=== PATIENT | female | born 1970 | race Caucasian/White ===

== ENCOUNTER 2020-02-06 13:12 | Outpatient (CLI) | payer OTHER, SELFPAY ==
--- NOTE | ~2020-02-06 | MM_ITS ---
EXAMINATION: MM screening [facility] BI w randall HISTORY: Screening mammogram TECHNIQUE: Craniocaudal and mediolateral oblique 3-D tomosynthesis images were obtained and synthetic 2-D images were generated. CAD analysis was submitted and interpreted. COMPARISON: 09/12/2018, 07/01/2017, 09/17/2015 bilateral digital screening mammogram examinations BREAST PARENCHYMAL COMPOSITION: The breasts are heterogeneously dense, which may obscure small masses .. FINDINGS: There is no evidence of suspicious mass, calcification, or architectural distortion to sugg est malignancy in either breast. There has been no suspicious interval change. IMPRESSION: 1. No mammographic evidence of malignancy. 2. Recommend routine screening mammography in one year. BIRADS Category 1: Negative Reviewed, dictated and finalized at location A.
== END 2020-02-06 13:13 | disposition home or self-care (01) ==
LOC: ANHIMG 13:14
PROVIDERS: PCP Obstetrics & Gynecology; Visit Provider Obstetrics & Gynecology
DX: Z12.31 Encounter for screening mammogram for malignant neoplasm of breast (principal)
CPT/HCPCS: 77063; 77067

== ENCOUNTER 2021-05-15 15:24 | Outpatient (CLI) | payer OTHER, SELFPAY ==
--- NOTE | ~2021-05-15 | MM_ITS ---
EXAMINATION: MM screening [facility] BI w randall HISTORY: Screening TECHNIQUE: Craniocaudal and mediolateral oblique 3-D tomosynthesis images were obtained and synthetic 2-D images were generated. CAD analysis was submitted and interpreted. COMPARISON: Comparison to multiple prior studies sequentially, with oldest reviewed study dated 09/04. BREAST PARENCHYMAL COMPOSITION: The breasts are extremely dense, which lowers the sensitivity of mamm ography. FINDINGS: There is no evidence of suspicious mass, calcification, or architectural distortion to sugg est malignancy in either breast. There has been no suspicious interval change. IMPRESSION: 1. No mammographic evidence of malignancy. 2. Recommend routine screening mammography in one year. BI-RADS Category 1: Negative Reviewed, dictated and finalized at location A.
== END 2021-05-15 15:25 | disposition home or self-care (01) ==
LOC: ANHIMG 15:25
PROVIDERS: PCP Obstetrics & Gynecology; Visit Provider Obstetrics & Gynecology
DX: Z12.31 Encounter for screening mammogram for malignant neoplasm of breast (principal)
CPT/HCPCS: 77063; 77067

== ENCOUNTER 2022-10-26 08:42 | Outpatient (CLI) | payer OTHER, SELFPAY ==
--- NOTE | ~2022-10-26 | MM_ITS ---
EXAMINATION: MM screening [facility] BI w randall HISTORY: Screening mammogram TECHNIQUE: Craniocaudal and mediolateral oblique 3-D tomosynthesis images were obtained and synthetic 2-D images were generated. CAD analysis was submitted and interpreted. COMPARISON: 05/15/2021, 02/06/2020, 09/12/2018 BREAST PARENCHYMAL COMPOSITION: The breasts are heterogeneously dense, which may obscure small masses . FINDINGS: No suspicious mass, calcification, or architectural distortion are identified in either anushka ast to suggest malignancy. There has been no suspicious interval change. IMPRESSION: 1. No mammographic evidence of malignancy. 2. Recommend routine screening mammography in one year. BI-RADS Category 1: Negative Reviewed, dictated and finalized at location A.
== END 2022-10-26 08:43 | disposition home or self-care (01) ==
PROVIDERS: PCP Obstetrics & Gynecology; Visit Provider Student in an Organized Health Care Education/Training Program
DX: Z12.31 Encounter for screening mammogram for malignant neoplasm of breast (principal)
CPT/HCPCS: 77063; 77067

== ENCOUNTER 2023-10-21 15:26 | Outpatient (CLI) | payer OTHER, SELFPAY ==
--- NOTE | ~2023-10-21 | MM_ITS ---
EXAMINATION: MM screening [facility] BI w randall HISTORY: Screening TECHNIQUE: Craniocaudal and mediolateral oblique 3-D tomosynthesis images were obtained and synthetic 2-D images were generated. CAD analysis was submitted and interpreted. COMPARISON: Comparison to multiple prior studies sequentially, with oldest reviewed study dated 10/26. BREAST PARENCHYMAL COMPOSITION: Dense: The breasts are heterogeneously dense, which may obscure small masses FINDINGS: There are focal asymmetries medially in the right breast on CC view. There is a new mass in the lower central left breast. There are no suspicious calcifications. IMPRESSION: 1. Right breast asymmetries. New left breast mass. 2. Additional mammographic views and possible breast ultrasound are recommended. BI-RADS Category 0: Incomplete: Needs additional imaging evaluation. Reviewed, dictated and finalized at location A. IMPRESSION: 1. Right breast asymmetries. New left breast mass. 2. Additional mammographic views and possible breast ultrasound are recommended . BI-RADS Category 0: Incomplete: Needs additional imaging evaluation.
== END 2023-10-21 15:27 | disposition home or self-care (01) ==
LOC: ANHIMG 16:03
PROVIDERS: PCP Obstetrics & Gynecology; Visit Provider Student in an Organized Health Care Education/Training Program
DX: Z12.31 Encounter for screening mammogram for malignant neoplasm of breast (principal); N64.89 Other specified disorders of breast
CPT/HCPCS: 77063; 77067

== ENCOUNTER 2023-11-02 13:10 | Outpatient (CLI) | payer OTHER, SELFPAY ==
--- NOTE | ~2023-11-02 | MMUS_ITS ---
EXAMINATION: MM diagnostic [facility] BI w randall, US breast BI complete HISTORY: Right breast mammographic asymmetries and new left breast mass reported on October 21, 2023 sc reening mammogram examinations TECHNIQUE: Additional 3-D tomosynthesis images of both breasts were performed and synthetic 2-D image s were generated. CAD analysis was submitted and interpreted. High resolution complete bilateral carlos enrique st ultrasound examination including all 4 quadrants and subareolar area of each breast was performed. COMPARISON: October 21, 2023 bilateral screening mammogram October 26, 2022, 05/15/2021 bilateral screening mammogram examinations FINDINGS: MAMMOGRAPHIC FINDINGS: Approximately 10 mm partially circumscribed mass is suggested posteriorly in the lower mid left breas t (coned compression MLO Tomosynthesis image 23/69; cone compression craniocaudal Tomosynthesis image 16/72). No suspicious mass, architectural distortion, malignant calcification, skin thickening or retraction of either breast is noted otherwise. ULTRASOUND: No suspicious solid lesion or shadowing of either breast is evident. Right breast: 12:00 near nipple: Approximately 4 mm cyst 12:00 near nipple: 4 x 5 x 5.6 mm circumscribed hypoechoic lesion without internal vascularity or pos terior shadowing, likely benign Left breast: 6:00 4 cm from nipple: 9 x 12 mm simple cyst with through transmission and posterior enhancement IMPRESSION: 1. Benign findings 2. Routine annual mammographic screening is recommended BI-RADS Category 2: Benign finding(s). Reviewed, dictated and finalized at location A. IMPRESSION: 1. Benign findings 2. Routine annual mammographic screening is recommended BI-RADS Category 2: Benign finding(s).
== END 2023-11-02 13:11 | disposition home or self-care (01) ==
LOC: ANHIMG 13:17
PROVIDERS: PCP Obstetrics & Gynecology; Visit Provider Student in an Organized Health Care Education/Training Program
DX: Z12.31 Encounter for screening mammogram for malignant neoplasm of breast (principal); N64.89 Other specified disorders of breast; N63.20 Unspecified lump in the left breast, unspecified quadrant
CPT/HCPCS: 76641; 77062; 77066; G0279

== ENCOUNTER 2025-04-23 15:06 | Outpatient (CLI) | payer OTHER, SELFPAY ==
--- NOTE | ~2025-04-23 | MM_ITS ---
EXAMINATION: MM screening [facility] BI w randall HISTORY: Screening TECHNIQUE: Craniocaudal and mediolateral oblique 3-D tomosynthesis images were obtained and synthetic 2-D images were generated. CAD analysis was submitted and interpreted. COMPARISON: 10/26/2022 BREAST PARENCHYMAL COMPOSITION: The breasts are extremely dense, which lowers the sensitivity of mammography. FINDINGS: No suspicious calcifications. Asymmetry in the upper right breast, anterior depth with questionable associated architectural distortion. Asymmetry in the medial right breast, middle depth, seen in the right cc projection. Asymmetry in the right retroareolar region seen in the right cc projection. Focal asymmetry in the central left breast, middle to posterior depth. IMPRESSION: 1. Asymmetry in the upper right breast, anterior depth with questionable associated architectural distortion. Asymmetry in the medial right breast, middle depth, seen in the right cc projection. Asymmetry in the right retroareolar region seen in the right CC projection. The study is incomplete. A diagnostic mammogram and a diagnostic ultrasound are recommended. 2. Focal asymmetry in the central left breast, middle to posterior depth. The study is incomplete. A diagnostic mammogram and a diagnostic ultrasound are recommended. BI-RADS 0: Incomplete-Need additional imaging evaluation. Reviewed, dictated and finalized at location Q. IMPRESSION: 1. Asymmetry in the upper right breast, anterior depth with questionable associ ated architectural distortion. Asymmetry in the medial right breast, middle dep th, seen in the right cc projection. Asymmetry in the right retroareolar region seen in the right CC projection. The study is incomplete. A diagnostic mammogr am and a diagnostic ultrasound are recommended. 2. Focal asymmetry in the central left breast, middle to posterior depth. The s tudy is incomplete. A diagnostic mammogram and a diagnostic ultrasound are romana mmended. BI-RADS 0: Incomplete-Need additional imaging evaluation.
--- OUTSIDE RECORDS SUMMARY | 2025-04-23 09:00 | XMS_ITS | Encounter Summary ---
Author Organization [facility] Address [address] [place] [address] Care Team Providers Care Shipping Support Clerk Name Role Phone Xavier Bernardo MD Primary Care Provider [phone] Oli Beyer MD Unavailable Reason for Visit * Reason Comments Cpap Follow-up Encounter Details Date Type Department Care Team (Late st Contact Info) Description 04/23/2025 9:00 AM CDT Office Visit [facility] [address] [place] [address] Shauna Wood, APNP-IN HOME SALES REPRESENTATIVE [address] [place] [address] JUSTIN (obstructive sleep apnea) (Primary Dx); Nocturia; Insufficient treatment with nasal CPAP; Obesity (BMI 30-39.9); CPAP use counseling Social History Tobacco Use Types Packs/Day Years Used Date Smoking Tobacco: Never Smokeless Tobacco: Never Alcohol Use Standard Drinks/Week Comments Yes 2 (1 standard drink = 0.6 oz pur e alcohol) roughly 4 glasses wine/mo PHQ-2 Answer Date Recorded Patient Health Questionnaire-2 Score 0 10/24/2024 Comments No Sex and Gender Information Value Date Recorded Sex Assigned at Not on file 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 Gender Identity Not on file Sexual Orientation Not on file 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 Answer Date of Assessment Author No 01/13/2024 12:43 PM CDT Anupama Sanches RN * Is person blind or have serious difficulty seeing? Answer Date of Assessment Author No 01/13/2024 12:43 PM CDT Anupama Sanches RN * Does person have serious difficulty walking/climbing stairs? Answer Date of Assessment Author No 01/13/2024 12:43 PM CDT Anupama Sanches RN * Does person have difficulty dressing/bathing? Answer Date of Assessment Author No 01/13/2024 12:43 PM CDT Anupama Sanches RN documented as of this encounter Mental Status * Does person have difficulty concentrating/remembering/making decisions? Answer Entry Date Author No 01/13/2024 12:43 PM CDT Anupama Sanches RN documented in this encounter Plan of Treatment Upcoming Encounters Date Type Department Care Team (Late st Contact Info) Description 10/22/2025 9:00 AM CDT Office Visit [facility] [address] [place] [address] Shauna Wood APNP-IN HOME SALES REPRESENTATIVE [address] [facility] [address] [place] [address] documented as of this encounter Visit Diagnoses Diagnosis JUSTIN (obstructive sleep apnea)- Primary Obstructive sleep apnea (adult) (pediatric) Nocturia Insufficient treatment with nasal CPAP Other respiratory complications Obesity (BMI 30-39.9) Obesity, unspecified CPAP use counseling documented in this encounter Care Teams Shipping Support Clerk Relationship Specialty Start Date End Date Xavier Bernardo MD [address] [facility] [place] [address] PCP - General Internal Medicine 08/03/23 Oli Beyer MD [address] [place] [id number] Resident Internal Medicine 08/03/23 documented as of this encounter
--- OUTSIDE RECORDS SUMMARY | 2025-04-23 16:54 | XMS_ITS | Clinical Summary ---
Author Organization [facility] Address [address] [place] [address] Care Team Providers Care Chute Loader Name Role Phone Xavier Bernardo MD Primary Care Provider [phone] Oli Beyer MD Unavailable Source Comments [facility],non-owned Affiliates and Associated Physician Practices is amultiple site organization consisting of ambulatory clinics and hospital sitesin [place], [place], [place] and [place]. This disclosure is being madepursuant to the Care Everywhere program and may not contain all informatio navailable regarding this patient. Last updated 18.[facility] Allergies Active Allergy Reactions Criticality Noted Date Comments Compazine Other High 03/05/2008 paralyzed Sulfa Drugs Other,Rash Medium 04/03/2013 Blood plateles go low Medications * Be aware that medications may not be up to date on this document. Alwaysverify current medications with the patient. cetirizine (ZYRTEC ALLERGY) 10 MG gel capsule Take 1 (one) capsule by mouth once daily Active DiphenhydrAMINE HCl (BENADRYL ALLERGY PO) Take 25 mg by mouth as needed Active multivitamin daily tablet Take 1 (one) tablet by mouth daily with food Active Cholecalciferol (VITAMIN D PO) Take 1,000 mcg by mouth once daily Active riboflavin 400 MG capsule Take 1 capsule by mouth once daily 60 capsule 5 9 Active fluticasone propionate (FLONASE) 50 MCG/ACT nasal spray [place] 2 (two) sprays into each nostril once daily Active montelukast (Singulair) 10 MG tablet Take 1 tablet by mouth once daily 90 tablet 3 5 Active propranolol ER 24hr (Inderal LA) 80 MG capsuleIndicatio ns:Migraine with aura and without status migrainosus, not intractable Take 1 (one) capsule by mouth once daily 90 capsule 3 5 Active rizatriptan (Maxalt) 5 MG tabletIndication s:Migraine with aura and without status migrainosus, not intractable TAKE 1 TABLET BY MOUTH NEEDED for migraine. May repeat x 1 dose in 2 hours if needed. Max dose 2 tabs in 24 hours 9 tablet 3 5 Active Azelastine HCl 137 MCG/SPRAY SOLN INHALE 2 SPRAYS IN INTO EACH NOSTRIL TWICE A DAY 4 04/23/20 25 Discontinu ed(Tx Complete) Active Problems Problem Noted Date Diagnosed Date TMJ (temporomandibular joint disorder) 4 Overweight (BMI 25.0-29.9) 03/30/2021 Healthcare maintenance 06/23/2018 Overview (02/27/2020): - Breast cancer screenin01/2020 - Cervical cancer screening: follows up with MECHANICAL METER TESTER - CRC screenin05/2008 d/t low iron levels (repeat at age 50) - Osteoporosis screening: due at 67 Allergic rhinitis 12/13/2013 JUSTIN (obstructive sleep apnea) 04/24/2013 Essential hypertension 03/05/2013 Chronic pansinusitis 03/05/2008 Migraine without aura and wi thout status migrainosus, not intractable 03/05/2008 Encounters Date Type Department Care Team Description 04/23/2025 9:00 AM CDT Office Visit [facility] - [facility] Services [address] [phone] Shauna Wood, MILO-COMPUTER TEACHER JUSTIN (obstructive sleep apnea) (Primary Dx); Nocturia; Insufficient treatment with nasal CPAP; Obesity (BMI 30-39.9); CPAP use counseling 04/23/2025 Travel 01/30/2025 Travel from Last 3 Months Immunizations Immunization Administration Dates Next Due INFLUENZA VACCINE, TRIV. (AF LURIA, FLUZONE TRIVALENT; 6MO+) (IIV3) 05/10/2016,04/17/2013 Covid [employer] primary monoval ent 12+ yr 0.3mL Purple cap 05/30/2021,09/06/2020,08/11/2020 DT (AGE 0-7) 07/11/1995 FLU VACCINE TRI IIV3 SPLIT I M (FLUVIRIN) 04/12/2013 HEP B VACCINE, ADULT 3 DOSE 10/24/2024,0 11/07/2023,10/03/2023,2023 INFLUENZA VACCINE 04/10/2019,04/10/2018 INFLUENZA VACCINE, CELL CULT URE, QUADR. (FLUCELVAX QUADRIVALENT; 6MO+), 0.5 ML (CCIIV4) 04/26/2019 INFLUENZA VACCINE, QUADR. (F LUZONE; FLULAVAL; FLUARIX; AFLURIA QUADRIVALENT; 6MO+), 0.5 ML (IIV4) 04/14/2023,04/29/2022,04/23/2021,2019,04/06/2018,04/14/2017 INFLUENZA VACCINE, TRIV. (FL UZONE; FLULAVAL; FLUARIX; AFLURIA TRIVALENT; 6MO+), 0.5 ML (IIV3) 05/10/2016 TDAP (7yrs+) 10/24/2024,08/19/2014 Zoster Hzv Vacc Recombinant Inj Im 10/03/2023, Family History Medical History Relation Name Comments Alzheimer's Disease Father 84 Anxiety Disorder Father 84 DVT - Deep Vein Thrombosis Maternal Grandmother DVT - Deep Vein Thrombosis Mother Hypertension Mother Pulmonary Embolism Mother hemophili a previously marked, pt reports no h/o bleeding just clotting Allergic Rhinitis Sister Anxiety Disorder Sister DVT - Deep Vein Thrombosis Sister Thyroid Disease Sister Relation Name Status Comments Father 84 Maternal Grandfather Maternal Grandmother Mother Alive Paternal Grandfather Paternal Grandmother Sister Alive Social History Tobacco Use Types Packs/Day Years Used Date Smoking Tobacco: Never Smokeless Tobacco: Never Tobacco Cessation:Counseling Given: Not Answered Alcohol Use Standard Drinks/Week Comments Yes 2 (1 standard drink = 0.6 oz pur e alcohol) roughly 4 glasses wine/mo PHQ-2 Answer Date Recorded Patient Health Questionnaire-2 Score 0 10/24/2024 Comments No Sex and Gender Information Value Date Recorded Sex Assigned at Not on file Legal Sex Female 6:28 AM TEXT TRANSCRIBER Gender Identity Not on file Sexual Orientation Not on file 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 on file Not on file Not on file Last Filed Vital Signs Vital Sign Reading Time Taken Comments Blood Pressure 134/92 04/23/2025 9:07 AM CDT Pulse 78 04/23/2025 9:07 AM CDT Temperature 36.8 C (98.3 F) 01/13/2024 12:35 PM CDT Respiratory Rate 12 01/13/2024 1:05 PM CDT Oxygen Saturation 97% 10/24/2024 3:07 PM CDT Inhaled Oxygen Concentration - - Weight 90.7 kg (200 lb) 04/23/2025 9:07 AM CDT Height 167.6 cm (5' 6) 04/23/2025 9:07 AM CDT Body Mass Index 32.28 04/23/2025 9:07 AM CDT Plan of Treatment Upcoming Encounters Date Type Department Care Team (Late st Contact Info) Description 10/22/2025 9:00 AM CDT Office Visit [facility] - [facility] [address] [facility] [address] [place] [address] Shauna Wood APNP-COMPUTER TEACHER [address] [facility] [address] [place] [address] Health Maintenance Due Date Last Done Comments COLOGUARD (AGES 45-75) - COLON CA SCREENING 1972 CT COLONOGRAPHY - COLON CA SCREENING 1972 FIT - COLON CA SCREENING 1972 FLEX SIG - COLON CA SCREENING 1972 PNEUMOCOCCAL VACCINE 50+ (1 of 2 - PCV) 09/21/1991 COVID-19 VACCINE ( season) 2025 06/10/2022, 05/30/2021, 09/27/2020, Additional history exists INFLUENZA VACCINE (#1) 2025 3, 04/29/2022, 04/23/2021, Additional history exists MAMMOGRAM 10/24/2025 10/25/2023 (Done Outside Per Report), 10/11/2022 (Done Outside Per Report) LIPID TESTING 06/17/2026 06/17/2021, /01/2019, 08/09/2014, Additional history exists COLON MONITORING 01/12/2027 01/13/2024, 01/13/2024 Colorectal Cancer Screening 01/12/2027 PAP with HPV 10/21/2027 10/20/2022 (Done Outside Per Patient), 07/11/2017 (Done Outside Per Patient) SCREENING FOR DIABETES 10/25/2027 5, 06/17/2021, 06/17/2021, Additional history exists COLONOSCOPY - COLON CA SCREENING 01/12/2034 01/13/2024, 01/13/2024 DTAP/TDAP/TD VACCINES (4 - Td or Tdap) 10/24/2034 10/24/2024, 08/19/2014, 07/11/1995 HEPATITIS C SCREENING Completed 06/17/2021 HIV SCREENING Completed 06/17/2021 ZOSTER VACCINE Completed 10/03/2023, 08/03/2023 DEPRESSION SCREENING Completed 10/24/2024, 08/03/2023, 12/17/2021 HEPATITIS B VACCINE Completed 10/24/2024, 11/07/2023, 10/03/2023, Additional history exists HIB VACCINE Aged Out No longer eligi ble based on patient's age to complete this topic HPV VACCINE Aged Out No longer eligi ble based on patient's age to complete this topic MENINGOCOCCAL (Group B) VACCINE SHARED DECISION-MAKING Aged Out No longer eligible based on patient's age to complete this topic MENINGOCOCCAL GROUPS A/C/Y/W VACCINE Aged Out No longer eligible based on patient's age to complete this topic Medical Devices Implanted Type Area Senior It Auditor Device Identifier Shelf Expiration Date Model / Serial / Lot Impl Nsl Propel Contr Strl Lf Implanted:Qty: 1 on 06/06/2018 by Xavier Barger MD at [facility] Right: Sinus Intersect 12/28/2019 [id number] / / [id number] Impl Nsl Propel Contr Strl Lf Implanted:Qty: 1 on 06/06/2018 by Xavier Barger MD at [facility] Left: Sinus Intersect 12/28/2019 [id number] / / [id number] Procedures Procedure Name Priority Date/Time Associated Diagnosis Comments HEMOGLOBIN A1C - POINT OF CARE (AMB) [facility] Routine 10/24/2024 4:14 PM CDT Screening due ENDOSCOPY, COLON, SCREENING Routine 01/13/2024 11:41 AM CDT LIPID PROFILE Routine 06/17/2021 4:40 PM TEXT TRANSCRIBER Preventative health care Encounter to establish care with new doctor HEPATITIS C AB SCREEN RFLX NAAT QUANT STAT 06/17/2021 4:40 PM TEXT TRANSCRIBER Preventative health care Encounter to establish care with new doctor HIV-1 HIV-2 ANTIBODY + HIV P24 AG PANEL Routine 06/17/2021 4:40 PM TEXT TRANSCRIBER Preventative health care Encounter to establish care with new doctor from Last 3 Months or Most Recently Relevant to Health Maintenance Results * HEMOGLOBIN A1C - POINT OF CARE (AMB) [facility] (10/24/2024 4:14 PM CDT) Hemoglobin A1c POCT 5.4 % [address] BLOOD SPECIMEN / Unknown 10/24/2024 4:14 PM CDT us Yvette Story MD LAB - POINT OF CARE ORDERABLES Final Result [address] [place] [address], [facility] [phone] * ENDOSCOPY, COLON, SCREENING (01/13/2024 11:41 AM CDT) Report Endoscopy POC Endoscopy Department Report _ Patient Name: Julia Eagle Procedure Date: 01/13/2024 11:41 AM Date of : 1970 Classification: Outpatient Gender: Female Ethnicity: Not or Race: White _ Providers: Jose Juan Monahan MD, Mandeep Jackson (Fellow) Referring MD: Xavier Bernardo (Referring MD) Procedure: Colonoscopy Indications: Screening for colorectal malignant neoplasm Medications: Monitored Anesthesia Care Patient Profile: This is a 53 year old female. Description of Procedure: After I obtained informed consent, the scope was passed under direct vision. Throughout the procedure, the patient's blood pressure, pulse, and oxygen saturations were monitored continuously. The Colonoscope was introduced through the anus and advanced to the terminal ileum, with identification of the appendiceal orifice and IC valve. The colonoscopy was performed without difficulty. The patient tolerated the procedure well. Scope insertion time was 8 minutes. Scope withdrawal time was 21 minutes. The quality of the bowel preparation was evaluated using the BBPS (Hammond Bowel Preparation Scale) with scores of: Right Colon = 3 (entire mucosa seen well with no residual staining, small fragments of stool or opaque liquid), Transverse Colon = 3 (entire mucosa seen well with no residual staining, small fragments of stool or opaque liquid) and Left Colon = 3 (entire mucosa seen well with no residual staining, small fragments of stool or opaque liquid). The total BBPS score equals 9. Findings: Skin tags were found on perianal exam. A 4 mm polyp was found in the cecum. The polyp was sessile. The polyp was removed with a cold snare. Resection and retrieval were complete. A 10 mm polyp was found in the ascending colon. The polyp was mucous-capped. The polyp was removed with a cold snare. Resection and retrieval were complete. A 4 mm polyp was found in the descending colon. The polyp was sessile. The polyp was removed with a cold snare. Resection and retrieval were complete. A 5 mm polyp was found in the rectum. The polyp was sessile. The polyp was removed with a cold snare. Resection and retrieval were complete. No additional abnormalities were found on retroflexion. Estimated Blood Loss: Estimated blood loss: none. Complications: No immediate complications. Impression: - Perianal skin tags found on perianal exam. - One 4 mm polyp in the cecum, removed with a cold snare. Resected and retrieved. - One 10 mm polyp in the ascending colon, removed with a cold snare. Resected and retrieved. - One 4 mm polyp in the descending colon, removed with a cold snare. Resected and retrieved. - One 5 mm polyp in the rectum, removed with a cold snare. Resected and retrieved. Recommendation: - High fiber diet. - Continue present medications. - Await pathology results. - Repeat colonoscopy in 3 years for surveillance. - Patient has a contact number available for emergencies. The signs and symptoms of potential delayed complications were discussed with the patient. Return to normal activities tomorrow. Written discharge instructions were provided to the patient. Attending Participation: I was present and participated during the entire procedure, including non-juarez portions. Procedure Code(s): --- Professional --- 13383, Colonoscopy, flexible; with removal of tumor(s), polyp(s), or other lesion(s) by snare technique Diagnosis Code(s): --- Professional --- Z12.11, Encounter for screening for malignant neoplasm of colon D12.0, Benign neoplasm of cecum D12.2, Benign neoplasm of ascending colon D12.4, Benign neoplasm of descending colon D12.8, Benign neoplasm of rectum K64.4, Residual hemorrhoidal skin tags CPT copyright 2021 [employer]. All rights reserved. The codes documented in this report are preliminary and upon cardiologist review may be revised to meet current compliance requirements. Jose Juan Monahan MD 01/13/2024 1:10:42 PM This report has been signed electronically. Note Initiated On: 01/13/2024 11:41 AM Number of Addenda: [address] [address] [facility] 01/13/2024 11:4 1 AM CDT Jose Juan Monahan MD GI PROCEDURE ORDERABLES Edited R esult - Final Performing Organization Address [facility]/ZIP Co de Phone Number [facility] * HEPATITIS C AB SCREEN RFLX NAAT QUANT (06/17/2021 4:40 PM TEXT TRANSCRIBER) Hepatitis C Antibody Non-react fam Non-reac tive 06/17/2021 9:12 PM TEXT TRANSCRIBER [facility] Comment:Hepatitis C Antibody screen indicates no serologic evidence of past or current infection with Hepatitis C Virus. Patients with unexplained liver disease who are immunocompromised or suspected of having acute Hepatitis C infection may benefit from Nucleic Acid Test (ZAINAB) for Hepatitis C Viral RNA to confirm Hepatitis C status. Blood BLOOD SPECIMEN / Unknown Lab Venipuncture / Unknown 06/17/2021 4:40 PM TEXT TRANSCRIBER 06/17/2021 5:09 PM TEXT TRANSCRIBER Ticketflyq DO LAB - CHEMISTRY ORDERABLES Final Result Performing Organization Address [facility] de Phone Number [address] [address], [facility] [phone] * HIV-1 HIV-2 ANTIBODY + HIV P24 AG PANEL (06/17/2021 4:40 PM TEXT TRANSCRIBER) HIV Antigen/Antibod y 1 & 2 Non-reacti ve Non-react fam 06/17/2021 9:12 PM TEXT TRANSCRIBER [facility] Comment:No Laboratory eviden ce of HIV infection. Blood BLOOD SPECIMEN / Unknown Lab Venipuncture / Unknown 06/17/2021 4:40 PM TEXT TRANSCRIBER 06/17/2021 5:09 PM TEXT TRANSCRIBER Michelle Sunq DO LAB - CHEMISTRY ORDERABLES Final Result Performing Organization Address [facility] Co de Phone Number [address] [place] [address], [place] [phone] * LIPID PROFILE (06/17/2021 4:40 PM TEXT TRANSCRIBER) Cholesterol Total 150 <200 mg/dL 06/17/2021 5:49 PM [facility] HDL 53 >40 mg/dL 06/17/2021 5:49 PM [facility] Comment: ATP III Classification of HDL Cholesterol: <40 mg/dL: Considered a major risk factor. >60 mg/dL: Considered a negative risk factor. LDL Calculated 82 <100 mg/dL 06/17/2021 5:49 PM [facility] Comment: ATP III Classification of LDL Cholesterol: <100 mg/dL: Optimal 100 - 129 mg/dL: Near Optimal/Above Optimal 130 - 159 mg/dL: Borderline High 160 - 189 mg/dL: High >190 mg/dL: Very High Triglycerides 74 <150 mg/dL 06/17/2021 5:49 PM [facility] Comment: ATP III Classification of Triglycerides: <150 mg/dL: Normal 150 - 199 mg/dL: Borderline High 200 - 400 mg/dL: High >500 mg/dL: Very High Blood BLOOD SPECIMEN / Unknown Lab Venipuncture / Unknown 06/17/2021 4:40 PM TEXT TRANSCRIBER 06/17/2021 5:22 PM TEXT TRANSCRIBER us Michelle Sunq DO LAB - CHEMISTRY ORDERABLES Final Result [address] [address], [place] [phone] from Last 3 Months or Most Recently Relevant to Health Maintenance Insurance [employer] Care Teams Chute Loader Relationship Specialty Start Date End Date Xavier Bernardo MD [address] [facility] [place] [phone] PCP - General Internal Medicine 08/03/23 Oli Beyer MD [address] [place] [phone] Resident Internal Medicine 08/03/23
--- OUTSIDE RECORDS SUMMARY | 2025-04-23 16:54 | XMS_ITS | Encounter Summary ---
Author Organization [facility] Address [address] [facility] [place] [address] Care Team Providers Care Boilermaking Supervisor Name Role Phone Xavier Bernardo MD Primary Care Provider [phone] Oli Beyer MD Unavailable Reason for Visit * Reason Onset Date Comments MEDICATION REFILL 09/17/2024 Encounter Details Date Type Department Care Team (Late st Contact Info) Description 09/17/2024 Refill [facility] [address] [facility] [place] [phone] Irineo Long MD [address] [facility] [address] [place] [address] MEDICATION REFILL Social History Tobacco Use Types Packs/Day Years Used Date Smoking Tobacco: Never Smokeless Tobacco: Never Alcohol Use Standard Drinks/Week Comments Yes 2 (1 standard drink = 0.6 oz pur e alcohol) roughly 4 glasses wine/mo PHQ-2 Answer Date Recorded Patient Health Questionnaire-2 Score 0 08/03/2023 Comments No Sex and Gender Information Value Date Recorded Sex Assigned at Not on file Legal Sex Female 6:28 AM WEB CONTENT COORDINATOR Gender Identity Not on file Sexual Orientation Not on file 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 Answer Date of Assessment Author No 01/13/2024 12:43 PM CDT Anupama Sanches RN documented as of this encounter Mental Status * Does person have difficulty concentrating/remembering/making decisions? Answer Entry Date Author No 01/13/2024 12:43 PM ROSAT Anupama Sanches RN documented in this encounter Plan of Treatment Upcoming Encounters Date Type Department Care Team (Late st Contact Info) Description 10/22/2025 9:00 AM CDT Office Visit [facility] - [facility] [address] [facility] [address] [place] [address] Shauna Wood APNP-STAMPING MACHINE OPERATOR [address] [facility] [address] [place] [address] documented as of this encounter Visit Diagnoses Diagnosis Migraine with aura and without status migrainosus, not intractable Migraine with aura, without mention of intractable migraine without mention of status migrainosus documented in this encounter Care Teams Boilermaking Supervisor Relationship Specialty Start Date End Date Xavier Bernardo MD [address] [facility] [place] [address] PCP - General Internal Medicine 08/03/23 Oli Beyer MD [address] [place] [phone] Resident Internal Medicine 08/03/23 documented as of this encounter
--- OUTSIDE RECORDS SUMMARY | 2025-04-23 16:54 | XMS_ITS | Encounter Summary ---
Author Organization [facility] Address [address] [facility] [place] [address] Care Team Providers Care Apparel Machinery Instructor Name Role Phone Xavier Bernardo MD Primary Care Provider [phone] Oli Beyer MD Unavailable Reason for Visit * Reason Onset Date Comments MEDICATION REFILL 09/11/2024 Encounter Details Date Type Department Care Team (Late st Contact Info) Description 09/11/2024 Refill [facility] [address] [facility] [place] [phone] Irineo Long MD [address] [facility] [address] [place] [address] MEDICATION REFILL Social History Tobacco Use Types [...] on file Legal Sex Female 6:28 AM CUPOLA OPERATOR INSULATION Gender Identity Not on file Sexual Orientation [...] Physician Group - Sleep Services [address] [facility] [address] [place] [address] Shauna Wood APNP-DYE MACHINE OPERATOR [address] [facility] [address] [place] [address] documented as of this encounter Visit Diagnoses Diagnosis Migraine with aura and without status migrainosus, not intractable Migraine with aura, without mention of intractable migraine without mention of status migrainosus documented in this encounter Care Teams Apparel Machinery Instructor Relationship Specialty Start Date End Date Xavier Bernardo MD [address] [facility] [place] [address] PCP - General Internal Medicine 08/03/23 Oli Beyer MD [address] [place] [phone] Resident Internal Medicine 08/03/23 documented as of this encounter
--- OUTSIDE RECORDS SUMMARY | 2025-04-23 16:54 | XMS_ITS | Encounter Summary ---
Author Organization [facility] Address [address] [facility] [place] [address] Care Team Providers Care Recycling Operator Name Role Phone Xavier Bernardo MD Primary Care Provider [phone] Oli Beyer MD Unavailable Encounter Details Date Type Department Care Team (Latest Contact Info) Description 04/23/2025 Travel Social History Tobacco Use Types Packs/Day Years [...] on file Legal Sex Female 6:28 AM ANIMAL RIDE MANAGER Gender Identity Not on file Sexual Orientation [...] Services [address] [facility] [address] [place] [address] Shauna Wood APNP-PROGRAM WRITER [address] [facility] [address] [place] [address] documented as of this encounter Visit Diagnoses Not on filedocumented in this encounter Care Teams Recycling Operator Relationship Specialty Start Date End Date Xavier Bernardo MD [address] [facility] [place] [address] PCP - General Internal Medicine 08/03/23 Oli Beyer MD [address] [place] [address] Resident Internal Medicine 08/03/23 documented as of this encounter
--- OUTSIDE RECORDS SUMMARY | 2025-04-23 16:54 | XMS_ITS | Clinical Summary ---
Author Organization [facility] Address [address] [place] [address] Care Team Providers Care Label Sewer Name Role Phone Unavailable Primary Care Provider Unavailabl e Social History Tobacco Use Types Packs/Day Years Used Date Smoking Tobacco: Never Assessed Comments Unknown Sex and Gender Information Value Date Recorded Sex Assigned at Not on file Legal Sex Female 6:43 PM CDT Gender Identity Not on file Sexual Orientation Not on file Plan of Treatment Health Maintenance Due Date Last Done Comments Cervical Cancer Screening Pa p Smear (Age 30 to 64) Every 3 Years 1972 Colorectal Cancer Screening Colonoscopy (10 Years) 1972 Annual Physical 09/21/1975 Hepatitis C 1990 DTaP, Tdap and Td Vaccines ( 1 - Tdap) 09/21/1991 Hepatitis B Vaccines (1 of 3 - 19+ 3-dose series) 09/21/1991 Cervical Cancer Screening Pa p with HPV Testing (Age 30 to 64) Every 5 Years 2002 Cervical Cancer Screening with HPV 2002 Mammogram Screening 2012 Pneumococcal Vaccine: 50+ Ye ars (1 of 1 - PCV) 2022 Zoster Vaccines (1 of 2) 2022 COVID-19 Vaccine ( - 2023-2 5 season) 2025 Influenza Adult (#1) 2025 Meningococcal B Vaccine Aged Out No l onger eligible based on patient's age to complete this topic Meningococcal Vaccine Aged Out No jayda niurka eligible based on patient's age to complete this topic RSV Immunizations Under 20 Months Aged Out No longer eligible based on patient's age to complete this topic
--- OUTSIDE RECORDS SUMMARY | 2025-04-23 16:54 | XMS_ITS | Encounter Summary ---
Author Organization [facility] Address [address] [place] [address] Care Team Providers Care Regional Account Manager Name Role Phone Niko Deras MD Primary Care Provider [phone] Michelle Mayes DO Unavailable Yrn Jon MD Primary Care Provider [phone] Xavier Bernardo MD Primary Care Provider Oli Beyer MD Unavailable Reason for Visit * Reason Onset Date Comments MEDICATION REFILL 09/02/2021 Encounter Details Date Type Department Care Team (Late st Contact Info) Description 09/02/2021 Refill [facility] Medicine [address] [facility] [place] [address] Niko Deras MD 1 [place] [address] MEDICATION REFILL Social History Tobacco Use Types Packs/Day Years Used Date Smoking Tobacco: Never Smokeless Tobacco: Never Alcohol Use Standard Drinks/Week Comments Yes 2 (1 standard drink = 0.6 oz pur e alcohol) roughly 4 glasses wine/mo PHQ-2 Answer Date Recorded PHQ2 TOTAL SCORE 0 06/17/2021 Comments No Sex and Gender Information Value Date Recorded Sex Assigned at Not on file Legal Sex Female 6:28 AM SAMPLE STITCHER Gender Identity Not on file Sexual Orientation Not on file 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 on file Not on file Not on file documented as of this encounter Plan of Treatment Upcoming Encounters Date Type Department Care Team (Late st Contact Info) Description 10/22/2025 9:00 AM CDT Office Visit [facility] - [facility] Services [address] [facility] [address] [place] [address] Shauna Wood, APNP-SCIENTIFIC SOFTWARE DEVELOPER [address] [facility] [address] [place] [address] documented as of this encounter Visit Diagnoses Diagnosis Migraine with aura and without status migrainosus, not intractable Migraine with aura, without mention of intractable migraine without mention of status migrainosus documented in this encounter Care Teams Regional Account Manager Relationship Specialty Start Date End Date Niko Deras MD PCP - General 05/25/21 07/05/23 Yrn Jon MD [address] [facility] [place] [address] PCP - General Internal Medicine 07/06/23 08/02/23 Xavier Bernardo MD [address] [facility] [place] [address] PCP - General Internal Medicine 08/03/23 Michelle Mayes DO [address] [place] [address] Resident - PCP Internal Medicine 05/25/21 08/02/23 Oli Beyer MD [address] [place] [address] Resident Internal Medicine 08/03/23 documented as of this encounter
== END 2025-04-23 15:07 | disposition home or self-care (01) ==
LOC: ANHFOHIMG 15:07
PROVIDERS: PCP Obstetrics & Gynecology; Visit Provider Student in an Organized Health Care Education/Training Program
DX: Z12.31 Encounter for screening mammogram for malignant neoplasm of breast (principal); N64.89 Other specified disorders of breast
CPT/HCPCS: 77063; 77067

== ENCOUNTER 2025-06-10 12:30 | Outpatient (CLI) | payer OTHER, SELFPAY ==
--- NOTE | ~2025-06-10 | MMUS_ITS ---
EXAMINATION: US breast BI limited, MM diagnostic [facility] BI w randall HISTORY: Additional imaging TECHNIQUE: Craniocaudal and mediolateral oblique 3-D tomosynthesis images were obtained and synthetic 2-D images were generated. CAD analysis was submitted and interpreted. Grayscale sonography over the area(s) of interest with color Doppler if there is a finding. COMPARISON: April 23 BREAST PARENCHYMAL COMPOSITION: Dense: The breasts are heterogeneously dense MAMMOGRAM FINDINGS: A circumscribed mass persists in the mid to posterior 6:00 left breast. There are some convex contours in the dense tissue at 2-3 o'clock on the right. There are no suspicious calcifications. No unexplained architectural distortion is seen. There are no skin or nipple abnormalities identified. There is no adenopathy seen on the images submitted. ULTRASOUND FINDINGS: Sonography through the 6:00 left breast demonstrates a simple cyst with a maximum dimension of 17 mm. This accounts for the mammographic mass. On the right at 2:00, there is a circumscribed, reniform, homogeneous, hypoechoic structure with maximum dimension of 5 mm and a parallel orientation. This could represent a lymph node or a C-shaped cyst containing a few low-level echoes. This is unchanged and has a benign appearance. IMPRESSION: No mammographic or sonographic evidence to suggest malignancy is seen. The patient may return to screening mammography as per ACR guidelines. BI-RADS 2 - Benign. Reviewed, dictated and finalized at location B. GAMES DEALER IMPRESSION: No mammographic or sonographic evidence to suggest malignancy is seen. The audrey ent may return to screening mammography as per ACR guidelines. BI-RADS 2 - Benign.
--- OUTSIDE RECORDS SUMMARY | 2025-06-10 13:40 | XMS_ITS | Clinical Summary ---
Author Organization [facility] Address [address] [place] [address] Care Team Providers Care Bookkeeping Clerks Supervisor Name Role Phone Unavailable Primary Care Provider [...] of 2) 2022 COVID-19 Vaccine ( - 2024-2 6 season) 2025 Influenza Adult (#1) 2025 Hepatitis A Vaccines Aged Out No long er eligible based on patient's age to complete this topic Meningococcal B Vaccine Aged Out No l onger eligible based on patient's age to complete this topic Meningococcal Vaccine Aged Out No jayda niurka eligible based on patient's age to complete this topic RSV Immunizations Under 20 Months Aged Out No longer eligible based on patient's age to complete this topic
--- OUTSIDE RECORDS SUMMARY | 2025-06-10 13:40 | XMS_ITS | Clinical Summary ---
Author Organization [facility] Address [address] [place] [address] Care Team Providers Care College Scouting Coordinator Name Role Phone Xavier Bernardo MD Primary Care Provider [phone] lOi Beyer MD Unavailable Source Comments [facility],non-owned Affiliates and Associated Physician Practices is amultiple site organization consisting of ambulatory clinics and hospital sitesin [place], [place], [place] and [place]. This disclosure is being madepursuant to the Care Everywhere program and may not contain all information available regarding this patient. Last updated 18.[facility] Allergies Active Allergy Reactions Criticality Noted Date [...] by mouth once daily 60 capsule 5 01/01/2019 Active fluticasone propionate (FLONASE) 50 MCG/ACT nasal spray [place] 2 (two) sprays into each nostril once daily Active montelukast (Singulair) 10 MG tablet Take 1 tablet by mouth once daily 90 tablet 3 09/12/2024 Active propranolol ER 24hr (Inderal LA) 80 MG capsuleIndicatio ns:Migraine with aura and without status migrainosus, not intractable Take 1 (one) capsule by mouth once daily 90 capsule 3 10/24/2024 Active rizatriptan (Maxalt) 5 MG tabletIndication s:Migraine with aura and without status migrainosus, not intractable TAKE 1 TABLET BY MOUTH NEEDED for migraine. May repeat x 1 dose in 2 hours if needed. Max dose 2 tabs in 24 hours 9 tablet 3 10/26/2024 Active Active Problems Problem Noted Date Diagnosed Date TMJ (temporomandibular joint disorder) Overweight (BMI 25.0-29.9) 03/30/2021 Healthcare maintenance 06/23/2018 Overview (02/27/2020): - Breast cancer screenin01/2020 - Cervical cancer screening: follows up with [facility] - CRC screenin05/2008 d/t low iron levels (repeat at age 52) - Osteoporosis screening: due at 67 Allergic rhinitis 12/13/2013 JUSTIN (obstructive sleep apnea) 04/24/2013 Essential hypertension 03/05/2013 Chronic pansinusitis 03/05/2008 Migraine without aura and wi thout status migrainosus, not intractable 03/05/2008 Encounters Date Type Department Care Team Description 04/23/2025 9:00 AM CDT Office Visit [facility] - Sleep Services [address] [address] Shauna Wood, MILO-CIVIL STRUCTURAL ENGINEER JUSTIN (obstructive sleep apnea) (Primary Dx); Nocturia; Insufficient treatment with nasal CPAP; Obesity (BMI 30-39.9); CPAP use counseling; Nasal congestion 04/23/2025 Travel from Last 3 Months Immunizations Immunization Administration Dates Next Due INFLUENZA VACCINE, TRIV. 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 Gender Identity Not on file Sexual Orientation [...] Physician Group - Sleep Services [address] [facility] [address] [place] [address] Shauna Wood APNP-CIVIL STRUCTURAL ENGINEER [address] [facility] [address] [place] [address] Health Maintenance Due Date Last Done Comments COLOGUARD (AGES 45-75) - COLON CA SCREENING 1972 CT COLONOGRAPHY - COLON CA SCREENING 1972 FIT - COLON CA SCREENING 1972 FLEX SIG - COLON CA SCREENING 1972 PNEUMOCOCCAL VACCINE 50+ (1 of 1 - PCV) 2022 COVID-19 VACCINE ( season) 2025 06/10/2022, 05/30/2021, 09/27/2020, Additional history exists INFLUENZA VACCINE (#1) 2025 3, 04/29/2022, 04/23/2021, Additional history exists MAMMOGRAM 10/24/2025 10/25/2023 (Done Outside Per Report), 10/11/2022 (Done Outside Per Report) LIPID TESTING 06/17/2026 06/17/2021, 05/12, 08/09/2014, Additional history exists COLON MONITORING 01/12/2027 01/13/2024, 01/13/2024 Colorectal Cancer Screening 01/12/2027 PAP with HPV 10/21/2027 10/20/2022 (Done Outside Per Patient), 07/11/2017 (Done Outside Per Patient) SCREENING FOR DIABETES 10/25/2027 , 06/17/2021, 06/17/2021, Additional history exists COLONOSCOPY - [...] this topic Medical Devices Implanted Type Area Attending Anesthesiologist Device Identifier Shelf Expiration Date Model / Serial / Lot Impl Nsl Propel Contr Strl Lf Implanted:Qty: 1 on 06/06/2018 by Xavier Barger MD at [facility] Right: Sinus Intersect 12/28/2019 [id number] / / [id number] Impl Nsl Propel Contr Strl Lf Implanted:Qty: 1 on 06/06/2018 by Xavier Barger MD at [facility] Left: Sinus Intersect 12/28/2019 [id number] / / [id number] Procedures Procedure Name Priority Date/Time Associated Diagnosis Comments HEMOGLOBIN A1C - POINT OF CARE (AMB) [facility] Routine 10/24/2024 4:14 PM CDT Screening due ENDOSCOPY, COLON, SCREENING Routine 01/13/2024 11:41 AM CDT LIPID PROFILE Routine 06/17/2021 4:40 PM EMPLOYEE OPERATIONS EXAMINER Preventative health care Encounter to establish care with new doctor HEPATITIS C AB SCREEN RFLX NAAT QUANT STAT 06/17/2021 4:40 PM EMPLOYEE OPERATIONS EXAMINER Preventative health care Encounter to establish care with new doctor HIV-1 HIV-2 ANTIBODY + HIV P24 AG PANEL Routine 06/17/2021 4:40 PM EMPLOYEE OPERATIONS EXAMINER Preventative health care Encounter to establish care with new doctor from Last 3 Months or Most Recently Relevant to Health Maintenance Results * HEMOGLOBIN A1C - POINT OF CARE (AMB) [facility] (10/24/2024 4:14 PM CDT) Hemoglobin A1c POCT 5.4 % [address] BLOOD SPECIMEN / Unknown 10/24/2024 4:14 PM CDT us Yvette Story MD LAB - POINT OF CARE ORDERABLES Final Result Performing Organization Address City/State/[facility] Co de Phone Number [address], [place] [address] [phone] * ENDOSCOPY, COLON, SCREENING (01/13/2024 11:41 AM [...] bowel preparation was evaluated using the BBPS (Limon Bowel Preparation Scale) with scores of: Right [...] non-juarez portions. Procedure Code(s): --- Professional --- 14388, Colonoscopy, flexible; with removal of tumor(s), polyp(s), or other lesion(s) by snare technique Diagnosis Code(s): --- Professional --- Z12.11, Encounter for screening for malignant neoplasm of colon D12.0, Benign neoplasm of cecum D12.2, Benign neoplasm of ascending colon D12.4, Benign neoplasm of descending colon D12.8, Benign neoplasm of rectum K64.4, Residual hemorrhoidal skin tags CPT copyright 2021 [employer]. All rights reserved. The codes documented in this report are preliminary and upon nurse ldr review may be revised to meet current compliance requirements. Jose Juan Monahan MD 01/13/2024 1:10:42 PM This report has been signed electronically. Note Initiated On: 01/13/2024 11:41 AM Number of Addenda: 0 [facility] [address] [place] [id number] [facility] [employer] 01/13/2024 11:4 1 AM CDT Jose Juan Monahan MD GI PROCEDURE ORDERABLES Edited R esult - Final Performing Organization Address [facility] Co de Phone Number [facility] [employer] * HEPATITIS C AB SCREEN RFLX NAAT QUANT (06/17/2021 4:40 PM EMPLOYEE OPERATIONS EXAMINER) [facility] Hepatitis C Antibody Non-react fam Non-reac tive 06/17/2021 9:12 PM EMPLOYEE OPERATIONS EXAMINER [facility] Comment:Hepatitis C Antibody screen indicates no serologic evidence of past or current infection with Hepatitis C Virus. Patients with unexplained liver disease who are immunocompromised or suspected of having acute Hepatitis C infection may benefit from Nucleic Acid Test (ZAINAB) for Hepatitis C Viral RNA to confirm Hepatitis C status. Blood BLOOD SPECIMEN / Unknown Lab Venipuncture / Unknown 06/17/2021 4:40 PM EMPLOYEE OPERATIONS EXAMINER 06/17/2021 5:09 PM EMPLOYEE OPERATIONS EXAMINER [employer] DO LAB - CHEMISTRY ORDERABLES Final Result Performing Organization Address [facility] de Phone Number [address] [address], [place] [phone] * HIV-1 HIV-2 ANTIBODY + HIV P24 AG PANEL (06/17/2021 4:40 PM EMPLOYEE OPERATIONS EXAMINER) [facility] HIV Antigen/Antibod y 1 & 2 Non-reacti ve Non-react fam 06/17/2021 9:12 PM EMPLOYEE OPERATIONS EXAMINER [facility] Comment:No Laboratory eviden ce of HIV infection. Blood BLOOD SPECIMEN / Unknown Lab Venipuncture / Unknown 06/17/2021 4:40 PM EMPLOYEE OPERATIONS EXAMINER 06/17/2021 5:09 PM EMPLOYEE OPERATIONS EXAMINER [employer] DO LAB - CHEMISTRY ORDERABLES Final Result Performing Organization Address [facility] de Phone Number [address] [address], [place] [phone] * LIPID PROFILE (06/17/2021 4:40 PM EMPLOYEE OPERATIONS EXAMINER) [facility] Cholesterol Total 150 <200 mg/dL 06/17/2021 5:49 PM [facility] HDL 53 >40 mg/dL 06/17/2021 5:49 PM [facility] Comment: ATP III Classification of HDL Cholesterol: <40 mg/dL: Considered a major risk factor. >60 mg/dL: Considered a negative risk factor. LDL Calculated 82 <100 mg/dL 06/17/2021 5:49 PM [facility] Comment: ATP III Classification of LDL Cholesterol: <100 mg/dL: Optimal 100 - 129 mg/dL: Near Optimal/Above Optimal 130 - 159 mg/dL: Borderline High 160 - 189 mg/dL: High >190 mg/dL: Very High Triglycerides 74 <150 mg/dL 06/17/2021 5:49 PM [facility] Comment: ATP III Classification of Triglycerides: <150 mg/dL: Normal 150 - 199 mg/dL: Borderline High 200 - 400 mg/dL: High >500 mg/dL: Very High Blood BLOOD SPECIMEN / Unknown Lab Venipuncture / Unknown 06/17/2021 4:40 PM EMPLOYEE OPERATIONS EXAMINER 06/17/2021 5:22 PM [facility] Michelle Mayes DO LAB - CHEMISTRY ORDERABLES Final Result Performing Organization Address City/State/[facility] Co de Phone Number [facility] [address] [place] [address], [facility] [phone] from Last 3 Months or Most Recently Relevant to Health Maintenance Insurance [employer] Care Teams College Scouting Coordinator Relationship Specialty Start Date End Date Xavier Bernardo MD [address] [facility] [place] [address] PCP - General Internal Medicine 08/03/23 Oli Beyer MD [address] [place] [address] Resident Internal Medicine 08/03/23
--- OUTSIDE RECORDS SUMMARY | 2025-06-10 13:40 | XMS_ITS | Encounter Summary ---
Author Organization [facility] Address [address] [facility] [place] [address] Care Team Providers Care Lens Mold Setter Name Role Phone Xavier Bernardo MD Primary Care Provider [phone] Oli Beyer MD Unavailable Reason for Visit * Reason Onset Date Comments MEDICATION REFILL 09/17/2024 Encounter Details Date Type Department Care Team (Late st Contact Info) Description 09/17/2024 Refill [facility] [facility], [place] [address] Irineo Long MD [address] [place] [address] [address] [place] [address] MEDICATION REFILL Social History Tobacco Use Types [...] on file Legal Sex Female 6:28 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 OXYGEN FURNACE Gender Identity Not on file Sexual Orientation [...] Group - Sleep Services [address] [facility] [address] [place] [address] Shauna Wood APNP-CHILDHOOD TEACHER [address] [facility] [address] [place] [address] documented as of this encounter Visit Diagnoses Diagnosis Migraine with aura and without status migrainosus, not intractable Migraine with aura, without mention of intractable migraine without mention of status migrainosus documented in this encounter Care Teams Lens Mold Setter Relationship Specialty Start Date End Date Xavier Bernardo MD [address] [facility] [place] [address] PCP - General Internal Medicine 08/03/23 Oli Beyer MD [address] [place] [address] Resident Internal Medicine 08/03/23 documented as of this encounter
--- OUTSIDE RECORDS SUMMARY | 2025-06-10 13:40 | XMS_ITS | Encounter Summary ---
Author Organization [facility] Address [address] [facility] [place] [address] Care Team Providers Care Burial Vault Maker Name Role Phone Niko Deras MD Primary Care Provider [phone] Michelle Mayes DO Unavailable Yrn Jon MD Primary Care Provider [phone] Xavier Bernardo MD Primary Care Provider Oli Beyer MD Unavailable Reason for Visit * Reason Onset Date Comments MEDICATION REFILL 09/02/2021 Encounter Details Date Type Department Care Team (Late st Contact Info) Description 09/02/2021 Refill [facility] [address] [facility] [place] [address] Niko Deras MD [address] [place] [address] MEDICATION REFILL Social History Tobacco [...] on file Legal Sex Female 6:28 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 Gender Identity Not on file Sexual Orientation [...] Physician Group - Sleep Services [address] [facility] [address] [place] [address] Shauna Wood, APNP-MANAGER OF RECRUITING [address] [facility] [address] [place] [address] documented as of this encounter Visit Diagnoses Diagnosis Migraine with aura and without status migrainosus, not intractable Migraine with aura, without mention of intractable migraine without mention of status migrainosus documented in this encounter Care Teams Burial Vault Maker Relationship Specialty Start Date End Date Niko Deras MD PCP - General 05/25/21 07/05/23 Yrn Jon MD [address] [facility] [place] [address] PCP - General Internal Medicine 07/06/23 08/02/23 Xavier Bernardo MD [address] [facility] [place] [address] PCP - General Internal Medicine 08/03/23 Michelle Mayes DO [address] [place] [address] Resident - PCP Internal Medicine 05/25/21 08/02/23 Oli Beyer MD [address] [place] [address] Resident Internal Medicine 08/03/23 documented as of this encounter
--- OUTSIDE RECORDS SUMMARY | 2025-06-10 13:40 | XMS_ITS | Encounter Summary ---
Author Organization [facility] Address [address] [facility] [place] [address] Care Team Providers Care Hairspring Truer Name Role Phone Xavier Bernardo MD Primary Care Provider [phone] Oli Beyer MD Unavailable Reason for Visit * Reason Onset Date Comments MEDICATION REFILL 09/11/2024 Encounter Details Date Type Department Care Team (Late st Contact Info) Description 09/11/2024 Refill [facility] [place] [address] Irineo Long MD [address] [place] [address] [address] [place] [address] MEDICATION REFILL Social History Tobacco Use Types [...] on file Legal Sex Female 6:28 AM DELIVERY COORDINATOR Gender Identity Not on file Sexual [...] Physician Group - Sleep Services [address] [facility] [address] [place] [address] Shauna Wood APNP-CHANGE MANAGEMENT COORDINATOR [address] [facility] [address] [place] [address] documented as of this encounter Visit Diagnoses Diagnosis Migraine with aura and without status migrainosus, not intractable Migraine with aura, without mention of intractable migraine without mention of status migrainosus documented in this encounter Care Teams Hairspring Truer Relationship Specialty Start Date End Date Xavier Bernardo MD [address] [facility] [place] [address] PCP - General Internal Medicine 08/03/23 Oli Beyer MD [address] [place] [address] Resident Internal Medicine 08/03/23 documented as of this encounter
== END 2025-06-10 12:31 | disposition home or self-care (01) ==
LOC: ANHFOHIMG 12:31
PROVIDERS: PCP Obstetrics & Gynecology; Visit Provider Obstetrics & Gynecology
DX: N64.89 Other specified disorders of breast (principal)
CPT/HCPCS: 76642; 77062; 77066; G0279